=== PATIENT | female | born 1955 | race African-American/Black ===

== ENCOUNTER 2023-05-30 16:45 | Emergency (ER) | payer SELFPAY ==
[~2023-05-30] VITALS: Ht 167.6 cm; Wt 50.0 kg
[2023-05-30 17:00] VITALS: O2SAT 100
[2023-05-30] MEDS ORDERED: HALOPERIDOL LACTATE 5MG/ML VIAL IM ONE (17:00)
[2023-05-30 17:44] LABS: BASOPHILS % 0.5 % (0.0-2.0); HEMATOCRIT. 38.9 % (36.0-48.0); HEMOGLOBIN. 12.6 g/dL (12.0-16.0); LYMPHOCYTES % 13.4 % (20.0-50.0); MEAN CORPUSCULAR HEMOGLOBIN 28.6 pg (28.0-32.0); MEAN CORPUSCULAR HGB CONC 32.4 g/dL (31.0-37.0); MEAN CORPUSCULAR VOLUME 88.2 fL (81.0-99.0); MEAN PLATELET VOLUME 7.8 fl (7.4-10.4); NEUTROPHILS % 79.1 % (40.0-76.0); PLATELET 338 x1000/uL (130-400); RED BLOOD CELL COUNT 4.41 mill/uL (4.2-5.4); RED CELL DISTRIBUTION WIDTH 14.3 % (11.6-14.6)
[2023-05-30 18:00] LABS: ACETAMINOPHEN < 2 ug/mL (10-30); ALANINE AMINOTRANSFERASE 15 IU/L (10-49); ALBUMIN 4.4 g/dL (3.2-4.8); ASPARTATE AMINOTRANSFERASE 24 IU/L (<34); BILIRUBIN TOTAL 0.3 mg/dL (0.1-1.0); CALCIUM 9.3 mg/dL (8.7-10.4); CARBON DIOXIDE 25 mEq/L (21-32); CHLORIDE 106 mEq/L (98-107); CREATINE KINASE 414 IU/L (34-145); CREATININE 1.8 mg/dL (0.6-1.0); GLUCOSE 89 mg/dL (70-105); POTASSIUM 4.1 mEq/L (3.5-5.1); SODIUM 141 mEq/L (136-145); THYROID STIMULATING HORMONE 1.94 uIU/mL (0.55-4.78); UREA NITROGEN BLOOD 33 mg/dL (9-23)
[2023-05-30 18:02] LABS: ETHANOL BLOOD < 10 mg/dL (<10)
[2023-05-30 18:37] LABS: HEPATITIS B SURFACE ANTIGEN NEGATIVE (Negative); HEPATITIS C AB NON REACTIVE (Neg) (Negative)
[2023-05-31 07:47] LABS: CLARITY URINE CLEAR (CLEAR); COLOR URINE YELLOW (YELLOW)
[2023-05-31 07:48] LABS: GLUCOSE URINE NEGATIVE (NEGATIVE); KETONES URINE 1+ (NEGATIVE); NITRITE URINE NEGATIVE (NEGATIVE); OCCULT BLOOD URINE NEGATIVE (NEGATIVE); PH URINE 5.5 (4.5-8.0); PROTEIN URINE TRACE (NEGATIVE); SPECIFIC GRAVITY URINE >=1.030 (1.005-1.030); UROBILINOGEN URINE 0.2 E.U./dL (0.2-1.0)
[2023-05-31 07:49] LABS: LEUKOCYTE ESTERASE URINE 1+ (NEGATIVE)
[2023-05-31 07:52] LABS: *AMPHETAMINES SCREEN URINE PRESUMPTIVE POSITIVE (NEGATIVE); *BARBITURATES SCREEN URINE NEGATIVE (NEGATIVE); *BENZODIAZEPINES SCREEN URINE PRESUMPTIVE POSITIVE (NEGATIVE); *COCAINE SCREEN URINE NEGATIVE (NEGATIVE); CANNABINOID URINE SCREEN NEGATIVE (NEGATIVE); ECSTASY MDMA SCREEN URINE CONF.TEST INDICATED (NEGATIVE); METHADONE URINE SCREEN Neg (NEGATIVE); OPIATES URINE SCREEN NEGATIVE (NEGATIVE); PHENCYCLIDINE URINE SCREEN NEGATIVE (NEGATIVE)
[2023-05-31 07:59] LABS: BACTERIA URINE 1+; SQUAMOUS EPITHELIAL CELL URINE 1+ /lpf (RARE/1+)
[2023-05-31 08:00] LABS: YEAST URINE NONE SEEN
[2023-05-31 10:00] VITALS: BP 110/70; PULSE 75; RESP 18; TEMP 98.2
== END 2023-05-31 11:47 | disposition home or self-care (01) ==
LOC: ER 16:45 → EDBD 16:45 → ER 05-31 11:47
DX: F19.10 Other psychoactive substance abuse, uncomplicated (principal); Z20.822 Contact with and (suspected) exposure to COVID-19
CPT/HCPCS: 80053; 80307; 80329; 80320; 82550; 83605; 84443; 85025; 87340; 36415; 86705; 96372; 99285; 87426; 80305; 81003; 87086; J1630; G0480